=== PATIENT | male | born 1975 | race Caucasian/White ===

== ENCOUNTER 2024-02-02 13:58 | Emergency (ER) | payer SELFPAY ==
--- NOTE | 2024-02-02 13:45 | RT.EKG_ITS ---
APPROVED REPORT Exam: Resting ECG Reason for Exam: dizziness Patient Location: E HR:58 bpm ECG Measurements Heart Rate 58 AXIS ND 154 P 52 QRSd 94 QRS -27 QT 419 T 52 QTc 411 Conclusion Sinus bradycardia 58 normal axis no stemi
[2024-02-02 13:59] VITALS: BP 120/77; PULSE 60; RESP 12; TEMP 36.3; O2SAT 100
--- NOTE | 2024-02-02 15:52 | ED.GENADUL_ITS ---
Discharge Plan Disposition Patient Disposition: Home Discharge Details Clinical Impression: Dizziness Primary Care Provider: Unknown,Unknown ED Provider: Saba Young Discharge Instructions Additional Instructions: Your workup today was reassuring. Your dizziness is likely due to a combination of dehydration following alcohol ingestion and/or heat and poor sleep. I recommend that you call your primary care provider tomorrow to schedule follo w-up appointment in the next couple of weeks. You had an incidental finding of a small nodule noted in your right mid lung, likely a granuloma. I recommend having this monitored by your primary care provider. Stay well hydrated, drinking plenty of electrolyte rich fluids such as Gatorlyte. Return to emergency care if you develop new episodes of passing out, chest pain, difficulty breathing, uncontrollable vomiting, or if you are very worried and need to be rechecked again immediately Discharge Data Discharge Date/Time-TO BE ENTERED AT DEPARTURE: 02/02/24 17:28 HPI General Date/Time Provider Initiated Documentation: 02/02/24 15:35 . HPI Narrative: Simón is a 48-year-old male with history of EtOH abuse on naltrexone who presents to the emergency department today for dizziness/near syncope. He reports that he spent the night at the [facility] last night after drinking 12 beers, says it was very hot in the room because the AC was off, over 100 degrees. He did not sleep well last night. Only had 3 cups of water to drink since yesterday, nothing to eat. This morning around 11 AM he experienced severe dizziness with room spinning when he sat up, this was accompanied by diaphoresis and vision change. He says that he felt very weak [place], did not feel good enough to walk to the bus station. Denies pain fever/chills, headache, vision changes, congestion, sore throat, cough, chest pain, shortness of breath, nausea/vomiting, abdominal pain, change in bowel or bladder function. Denies history of hypertension, hyperlipidemia, cardiac disease, diabetes, connective tissue disorder such as EDS or Marfan. Does not know family medical history because he is adopted. Physical exam very reassuring. Patient is alert and oriented, no acute distress. Slightly tacky mucous membranes. PERRL, EOMs intact. TMs pearly howell, translucent. Moving all extremities equally. Easy work of breathing, lung sounds clear bilaterally. Normal heart sounds. No JVD or pedal edema. Abdomen soft, nondistended, nontender to palpation. DDx includes but is not limited to: Vasovagal near syncope, cardiac arrhythmia, dehydration, electrolyte imbalance, heat exhaustion. No red flags concerning for ACS I independently interpreted the following tests: EKG reassuring, normal sinus rhythm rate 58. No changes consistent with acute ischemia. No QT prolongation. CBC, CMP reassuring (only elevated tot bili with normal AST/ALT/alk phosp). Chest x-ray overall reassuring, only a small right lung nodule noted, no infiltrates or cardiomegaly noted. While in the emergency department Simón received IV fluids and Zofran with full resolution of symptoms. He was able to tolerate a p.o. without difficulty, reports he felt significantly better upon discharge. Overall cardiac workup today very reassuring. Likely heat/dehydration related near syncope. Recommend follow-up with PCP for re-evaluation and to discuss incidental finding from CT scan. Reviewed red flags indicate need for return to emergency care. General Stated Complaint: Dizzy/Sync RACHELE: 3 Review of Systems Narrative: see HPI Exam Const General: cooperative, healthy appearing, comfortable, no acute distress and well developed Nutritional Appearance: average body habitus Orientation: alert and oriented x3 HENMT Head: normal to inspection Ears: hearing grossly normal bilaterally, external ears normal and TM's normal bilaterally General nose exam: external nose normal Mouth: moist mucous membranes Eyes General: appearance normal, both eyes and all related structures Pupils: PERRL EOM: EOM intact bilaterally Resp Effort & Inspection: normal respiratory effort and able to speak in complete s entences Auscultation: clear to auscultation bilaterally Cardio Jugular venous pressure: no JVD Rate: regular rate Rhythm: regular rhythm Pulses: radial pulses present GI Inspection: normal to inspection and non-distended Palpation: soft, not firm and nontender Auscultation: normal bowel sounds Skin General skin exam: no rashes or lesions noted Neuro General: gait normal, tone normal and moves all extremities Course Vital Signs Vital signs: Vital Signs Temperature 36.3 C L 02/02/24 13:59 Pulse 60 02/02/24 13:59 Respiratory Rate 12 02/02/24 13:59 Blood Pressure 120/77 02/02/24 13:59 Pulse Oximetry 100 07/15/24 13:59 Temperature 36.3 C L 02/02/24 13:59 Temperature Source Skin 02/02/24 13:59 Pulse 60 02/02/24 13:59 Respiratory Rate 12 02/02/24 13:59 Blood Pressure 120/77 02/02/24 13:59 Blood Pressure Position Sitting 02/02/24 13:59 Pulse Oximetry 100 02/02/24 13:59 Oxygen Delivery Method Room Air 02/02/24 13:59 Oxygen Flow Rate 0 02/02/24 13:59 Pain Level 0 02/02/24 13:59 Medical Decision Making Imaging Data Radiologic Study: Radiologist's impression: Exam(s) XR CHEST 2V PA LATERAL EXAM: XR CHEST 2V PA LATERAL CLINICAL HISTORY: dizzy. TECHNIQUE: 2D digital imaging was performed. COMPARISON: No exams were available for comparison FINDINGS: 2 views: Heart size is normal. The mediastinum is not widened. Left lung is clear. There is a small nodule in the mid right lung field which is probably a small granuloma. This is partially obscured by the overlying inferior aspect of the right scapula. No other focal lung findings and no pleural effusions. IMPRESSION: Small right lung nodule as above which is probably a granuloma. Quality:SDOH Health Related Social Needs: No Data to Display PFSH All Active Problems (Updated 02/02/24 @ 17:20 by Saba Paige) Dizziness (Acute) Social History Smoking risk assessment performed?: No
[2024-02-02 15:59] LABS: Abs Immature Grans 0.07 10^3/uL (0.0-0.06); Absolute Basophil Count 0.06 10^3/uL (0.0-0.2); Absolute Eosinophil Count 0.01 10^3/uL (0.0-0.7); Absolute Lymphocyte Count 1.13 10^3/uL (1.2-3.4); Absolute Monocyte Count 0.82 10^3/uL (0.1-0.8); Absolute Neutrophil Count 7.92 10^3/uL (1.2-6.7); Basophils % 0.6 %; Eosinophils % 0.1 %; HCT 42.7 % (40.0-50.0); HGB 14.6 g/dL (13.5-17.5); Immature Grans % 0.7 %; Lymphocytes % 11.3 %; MCH 30.3 pg (27.0-33.0); MCHC 34.2 % (32.0-36.0); MCV 89 fL (80-95); MPV 8.9 fL (8.0-11.0); Monocytes % 8.2 %; Neutrophils % 79.1 %; Platelet Count 368 10^3/uL (130-400); RBC 4.82 10^6/uL (4.36-5.78); RDW 12.3 % (11.8-14.1); RDW-SD 40.2 fL; WBC 10.01 10^3/uL (4.4-10.8)
[2024-02-02 16:00] VITALS: BP 144/76; PULSE 62
[2024-02-02 16:21] LABS: ALT 25 U/L (16-63); AST 33 U/L (15-37); Albumin 4.5 g/dL (3.4-5.0); Alkaline Phosphatase 82 U/L (46-116); Anion Gap 13.5 mmol/L (3-11); BUN 15 mg/dL (7-18); Bilirubin, Total 1.66 mg/dL (0.2-1.0); CO2 24.5 mmol/L (21.0-32.0); CREATININE 1.1 mg/dL (0.70-1.30); Calcium 9.7 mg/dL (8.5-10.1); Chloride 102 mmol/L (98-107); Estimated GFR 81.78 (mL/min/1.73m2); Glucose 81 mg/dL (74-106); Magnesium 2.1 mg/dL (1.8-2.4); Potassium 4.3 mmol/L (3.5-5.1); Sodium 140 mmol/L (136-145); Total Protein 8.2 g/dL (6.4-8.2)
[2024-02-02] MEDS: Normal Saline 1,000 ML 1000 ML IV (16:35)
[2024-02-02] MEDS: Ondansetron 4 MG/2 ML VIAL IVP (16:35)
[2024-02-02 16:49] VITALS: RESP 15
--- NOTE | 2024-02-02 16:56 | DI.RAD_ITS ---
Exam(s) XR CHEST 2V PA LATERAL EXAM: XR CHEST 2V PA LATERAL CLINICAL HISTORY: dizzy. TECHNIQUE: 2D digital imaging was performed. COMPARISON: No exams were available for comparison FINDINGS: 2 views: Heart size is normal. The mediastinum is not widened. Left lung is clear. There is a small nodule in the mid right lung field which is probably a small gr anuloma. This is partially obscured by the overlying inferior aspect of the right scapula. No other focal lung findings and no pleural effusions. IMPRESSION: Small right lung nodule as above which is probably a granuloma. DATA REPOSITORY: RADIATION DOSE DELIVERED:
--- NOTE | 2024-02-02 18:36 | NUR.NOTE ---
[employer] Author[employer]atin form faxed for paymet for the [employer] bus in the morning. Patient will be at the [facility] in [facility] by 0605 to ride to [place]. Permission to do the form per Danielle Burrell, Nursing Pre Parole Counseling Aide. Nursing Note:
--- NOTE | 2024-02-04 10:48 | NUR.NOTE ---
Accessed chart to reconcile [employer] EKG orders with [employer] EKG's in system. Duplicate order cancelled. Nursing Note:
== END 2024-02-02 17:28 | disposition home or self-care (01) ==
PROVIDERS: Emergency Provider Nurse Practitioner Family
DX: R55 Syncope and collapse (principal); R42 Dizziness and giddiness; R00.1 Bradycardia, unspecified
CPT/HCPCS: 80053; 82962; 93005; 99285; 71046; 83735; 85025; 93010; 99284; J2405